=== PATIENT | male | born 1980 | race Two or more races ===

== ENCOUNTER 2018-09-16 10:19 | Emergency (ER) | payer OTHER ==
[~2018-09-16] VITALS: Ht 182.9 cm; Wt 97.5 kg
[2018-09-16 10:26] VITALS: BP 141/95
[2018-09-16] MEDS ORDERED: FLUORESCEIN SOD 1 MG TEST STRIP OP ONE (10:45)
[2018-09-16] MEDS ORDERED: TETRACAINE HCL 0.5% OPTH(EYE) SOLN 4ML EACHEYE ONE (10:45)
[2018-09-16] MEDS ORDERED: IBUPROFEN 800 MG TAB PO ONE (11:00)
== END 2018-09-16 11:17 ==
LOC: ER 10:29 → EEVIPCON 10:29 → ER 11:15
DX: S05.01XA Injury of conjunctiva and corneal abrasion without foreign body, right eye, initial encounter (principal); H10.31 Unspecified acute conjunctivitis, right eye; X58.XXXA Exposure to other specified factors, initial encounter; Y93.89 Activity, other specified; Y99.8 Other external cause status; Y92.148 Other place in prison as the place of occurrence of the external cause